=== PATIENT | male | born 1985 | race Caucasian/White ===

== ENCOUNTER 2018-03-23 08:25 | Outpatient (CLI) | payer BC ==
--- NOTE | 2018-03-23 12:02 | MRI ---
BRAIN MRI WITH AND WITHOUT CONTRAST: Date: 03/23/18 COMPARISON: 11/23/07. CLINICAL HISTORY: Headache. Encephalocele. FINDINGS: There is redemonstration of ventriculomegaly with asymmetric ex vacuo dilatation of left lateral vent ricle related to posterior left cerebral hemispheric parenchymal defect. There is no acute mass effec t, territorial infarction, or hemorrhagic susceptibility. Stable appearance of callosal anomaly. Ther e remains peg-shaped morphology of the cerebellar tonsils. Prominent mucosal inflammation of the imag ed paranasal sinuses. IMPRESSION: Stable brain MRI compared to the 11/23/07 exam. There is no acute intracranial abnormality identified . POS: [facility]
--- NOTE | 2018-03-23 12:04 | CT ---
HEAD CT NONCONTRAST: Date: 03/23/18 CLINICAL HISTORY: Headache for 1 month. Reference made to prior brain MRI dated 11/23/07. FINDINGS: There is redemonstration of callosal anomaly and prominent ventriculomegaly, more notable on the left , which is associated with a chronic parenchymal defect. There is overlying postoperative craniotomy of the posterior parietal/occipital calvarium. No acute intracranial hemorrhage, mass effect, or midl ine shift. There is scattered paranasal sinus mucosal thickening/retention cyst formation. IMPRESSION: Chronic appearing intracranial findings without evidence of an acute intracranial abnormality identif ied. POS: [facility]
== END 2018-03-23 08:26 | disposition home or self-care (01) ==
LOC: TBSIIMAG 08:25
PROVIDERS: ATTEND Neurological Surgery
DX: R51 Headache (principal); Q01.9 Encephalocele, unspecified
CPT/HCPCS: 70450; 70553

== ENCOUNTER 2018-04-28 09:43 | Outpatient (CLI) | payer BC ==
--- NOTE | 2018-04-28 13:00 | MRI ---
MRI CERVICAL SPINE: Multiplanar, multisequential imaging of cervical spine obtained according to protocol. HISTORY: Cervical spondylosis. FINDINGS: The cervical vertebrae maintain height. There are degenerative changes at C3 and C4 with mild loss o f disk space and mild anterior wedging at these levels. There is a slight retrolisthesis at C3-4. B road-based bulge and spondylosis at C3-4 effaces the anterior subarachnoid space and abuts the anteri or cord. Mild foraminal narrowing at this level bilaterally due to facet and uncinate hypertrophy. At C4-5, mild spondylosis mildly flattening the thecal sac. The anterior subarachnoid space is prese rved. Foramen appear patent. At C5-6, minimal spondylosis. Anterior subarachnoid space is maintained and no significant foraminal stenosis. At C6-7, disk bulge and spondylosis is more prominent flattening the thecal sac and mildly effacing t he anterior subarachnoid space. No cord impingement. Mild bilateral foraminal encroachment due to u ncinate hypertrophy. Cervical cord signal is normal. IMPRESSION: 1. Slight retrolisthesis at C3-4 and prominent posterior disk bugle and spondylosis efface the anter ior subarachnoid space and abuts the anterior cord. Mild foraminal encroachment as described above. 2. Mild spondylosis at the other levels, slightly more pronounced at C6-7 as described above. POS: [facility]
== END 2018-04-28 09:44 | disposition home or self-care (01) ==
LOC: TBSIIMAG 09:43
PROVIDERS: ATTEND Anesthesiology Pain Medicine
DX: M47.892 Other spondylosis, cervical region (principal); M43.12 Spondylolisthesis, cervical region; M50.80 Other cervical disc disorders, unspecified cervical region
CPT/HCPCS: 72141

== ENCOUNTER 2018-10-19 11:24 | Outpatient (CLI) | payer BC ==
--- NOTE | 2018-10-19 12:02 | RAD ---
RIGHT FOOT THREE VIEWS: History: Pain in right foot. Right stress fracture. FINDINGS: Tarsals appear unremarkable. The tarsal metatarsal joints are unremarkable. Metatarsals appear intact . No evidence of stress fracture or other osseous abnormality. No periosteal reaction identified. Phalanges unremarkable. MTP joints unremarkable. There is mild DJD at the first MTP joint noted. IMPRESSION: No acute abnormality identified. POS: [facility]
== END 2018-10-19 11:25 | disposition home or self-care (01) ==
LOC: BICRAD 11:24
PROVIDERS: ATTEND Family Medicine
DX: M79.671 Pain in right foot (principal)

== ENCOUNTER 2019-10-04 14:12 | Outpatient (CLI) | payer OTHER ==
--- NOTE | 2019-10-04 14:50 | RAD ---
SACRUM AND COCCYX THREE VIEWS: 10/04/2019 HISTORY: Sacral contusion. COMPARISON: None. FINDINGS: There is no widening of the pubic symphysis or sacroiliac joints. The pelvic ring is intact. On the l ateral examination there is slight offset of a distal coccygeal segment, likely at the junction of th e first and second coccygeal segments, the distal coccygeal segment being slightly displaced posterio rly by 2-3 mm, suggesting a minimally displaced coccygeal fracture. IMPRESSION: Probable distal coccygeal fracture. POS: [facility]
== END 2019-10-04 14:13 | disposition home or self-care (01) ==
LOC: BICRAD 14:12
PROVIDERS: ATTEND Family Medicine
DX: S30.0XXA Contusion of lower back and pelvis, initial encounter (principal)
CPT/HCPCS: 72220

== ENCOUNTER 2023-06-30 21:51 | Emergency (ER) | payer OTHER ==
[2023-06-30 23:06] LABS: SARS-CoV-2 NAA Rapid Test Not Detected (NotDetected)
== END 2023-06-30 22:40 | disposition home or self-care (01) ==
LOC: ERS 21:51
DX: Z20.822 Contact with and (suspected) exposure to COVID-19 (principal); I10 Essential (primary) hypertension
CPT/HCPCS: 99283